=== PATIENT | female | born 1990 | race Caucasian/White ===

== ENCOUNTER → 2016-07-15 | Outpatient (REF) | payer OTHER | LOC: M LAB REF 17:08 | PROVIDERS: ATTEND Advanced Practice Midwife | DX: Z34.82 Encounter for supervision of other normal pregnancy, second trimester (principal) ==

== ENCOUNTER → 2016-08-13 | Outpatient (CLI) | payer OTHER ==
--- NOTE | 2016-08-14 02:42 | REP ---
Clinical: Anatomical evaluation. Comparison: 05/27/2016 . Findings: Examination demonstrates a single live intrauterine in breech presentation. motion is identified by technologist. Placenta is noted anteriorly and grade zero without evidence for placenta previa or abruption. Amniotic fluid volume is normal. Cervix measures 4.0 cm in length and appears closed. No evidence for nuchal cord. Gestational age by LMP 21 weeks 1 day with JN 12/23/2016 . Gestational age by current measurements 20 weeks 1 day with JN 12/30/2016 . FHR equals 147 beats per minute. BPD 4.8 cm 20 weeks 3 days HC 17.8 cm 20 weeks 2 days AC 16.0 cm 21 weeks 1 day FL 3.2 cm 20 weeks 0 days HL 3.2 cm 20 weeks 4 days HC/AC ratio 1.11 Estimated weight 360 grams ( 98th percentile). Anatomical assessment demonstrates normal structures including cranium, choroid plexus, cavum, cerebellum/posterior fossa, facial features, lungs, diaphragm, stomach, cord insertion/three-vessel cord, kidneys/bladder, spine, and extremities. Impression: Single live intrauterine in breech presentation demonstrating appropriate interval growth. Heart/ventricular outflow tracts incompletely evaluated. Remainder of the anatomical assessment is complete and normal. Signed by Bebeto Ramirez MD 08/14/2016 02:34 A
== END ==
LOC: M SMT 12:52
PROVIDERS: ATTEND Specialist
DX: Z36 Encounter for antenatal screening of mother (principal); Z3A.21 21 weeks gestation of pregnancy

== ENCOUNTER → 2016-09-03 | Outpatient (CLI) | payer OTHER ==
--- NOTE | 2016-09-03 13:54 | REP ---
Obstetric sonography: History: Supervision of , followup anatomy. Comparison sonography August 13, 2016. Findings: Scanning through the gravid uterus demonstrates a viable single intrauterine gestation in a cephalic lie. motion is observed and heart rate is recorded at 153 beats per minute. An anterior grade zero placenta is seen without evidence of previa or abruption. Amniotic fluid is subjectively normal. Closed cervical length measures 4.4 cm. No extrauterine abnormality is observed. There has been appropriate interval growth. Umbilical cord is seen draping across shoulders. No anomaly is seen. The following anatomic structures are identified today and felt to be unremarkable: cranium, choroid plexus, cavum, cerebellum and posterior fossa, face and profile, lungs, four-chamber heart with left and right ventricular outflow tract views, diaphragm, left-sided stomach, abdominal wall cord insertion, three-vessel umbilical cord, kidneys and bladder, spine, upper and lower extremities. Biometry chart: BPD 5.9 cm 24 weeks 2 days Head circumference 21.8 cm 23 week 6 days Abdominal circumference 19.7 cm 24 weeks 3 days Femur length 4.1 cm 23 weeks 1 day Humeral length 4.0 cm 24 weeks 1 day Cerebellar diameter 2.5 cm 22 weeks 6 days HC/AC ratio normal 1.11. Cephalic index normal 0.76. Estimated weight 637 grams, 1 pound 6 ounces, 38th percentile for 24 weeks 1 day. Impression: Viable single intrauterine gestation at 23 weeks 3 days by today's composite sonographic criteria. JN by today's sonography December 28, 2016. anatomic survey is felt to be complete. Signed by Marc Garcia MD 09/03/2016 03:26 P
== END ==
LOC: M SMT 12:47
PROVIDERS: ATTEND Obstetrics & Gynecology
DX: Z36 Encounter for antenatal screening of mother (principal); Z3A.23 23 weeks gestation of pregnancy

== ENCOUNTER → 2016-10-02 | Outpatient (CLI) | payer OTHER ==
[2016-10-02 13:29] LABS: BASO % 0.2 % (0.0-1.0); EOS % 0.4 % (0.0-3.0); LARGE UNSTAINED CELL # 0.1 K/mm3 (0.0-0.4); LYMPH # 1.8 K/mm3 (1.5-6.5); LYMPH % 16.3 % (24.0-44.0); MEAN CORPUSCULAR HGB CONC 33.6 g/dl (32.0-36.5); MEAN CORPUSCULAR VOLUME 89.4 fl (80.0-96.0); MONO # 0.6 K/mm3 (0.0-0.8); MONO % 5.4 % (0.0-5.0); NEUTROPHILS # 7.8 K/mm3 (1.8-7.7); NEUTROPHILS % 76.7 % (36.0-66.0); PLATELET COUNT, AUTOMATED 238 k/mm3 (150-450); RED CELL DISTRIBUTION WIDTH 12.9 % (11.5-14.5); WHITE BLOOD COUNT 10.2 K/mm3 (4.0-10.0)
== END ==
LOC: M SMT 10:11
PROVIDERS: ATTEND Specialist
DX: Z34.82 Encounter for supervision of other normal pregnancy, second trimester (principal)

== ENCOUNTER → 2016-11-05 | Outpatient (CLI) | payer OTHER ==
--- NOTE | 2016-11-06 03:17 | REP ---
Clinical: History of oligohydramnios and growth discrepancy . Comparison: 09/03/2016 . Findings: Examination demonstrates a single live intrauterine in cephalic presentation. motion is identified by technologist. Placenta is noted anteriorly and grade I without evidence for placenta previa or abruption. Amniotic fluid volume is normal. Cervix measures 4.8 cm in length and appears closed. No evidence for nuchal cord. Gestational age by LMP 33 weeks 1 day with JN 12/23/2016 . Gestational age by current measurements 32 weeks 2 days with JN 12/29/2016 . FHR equals 150 beats per minute. BPD 8.4 cm 33 weeks 5 days HC 29.5 cm 32 weeks 4 days AC 28.5 cm 32 weeks 4 days FL 6.3 cm 32 weeks 3 days HL 5.9 cm 34 weeks 1 day HC/AC ratio 1.03 Estimated weight 2011 grams ( 35th percentile). Amniotic fluid index equals 10.3 cm (8.3 - 24.5). Umbilical cord SD ratio equals 2.29 (2.00 - 3.00). Impression: Single live intrauterine in cephalic presentation demonstrating appropriate interval growth. Amniotic fluid index normal. Estimated weight normal. Signed by Bebeto Ramirez MD 11/06/2016 03:08 A
== END ==
LOC: M SMT 11:16
PROVIDERS: ATTEND Advanced Practice Midwife
DX: Z36 Encounter for antenatal screening of mother (principal); Z3A.32 32 weeks gestation of pregnancy

== ENCOUNTER → 2016-12-08 | Outpatient (REF) | payer OTHER | LOC: M LAB REF 17:09 | PROVIDERS: ATTEND Obstetrics & Gynecology | DX: Z34.83 Encounter for supervision of other normal pregnancy, third trimester (principal) ==

== ENCOUNTER 2016-12-19 19:37 | Inpatient (IN) | payer OTHER ==
[~2016-12-19] VITALS: Ht 167.6 cm; Wt 88.0 kg
[2016-12-19] MEDS ORDERED: LR 1,000 ML IV SCH (20:03)
[2016-12-19] MEDS ORDERED: LACTATED RINGER'S 1000 ML IV STA (20:03)
[2016-12-19 20:43] LABS: MEAN CORPUSCULAR HEMOGLOBIN 27.6 pg (27.0-33.0); MEAN CORPUSCULAR HGB CONC 33.7 g/dl (32.0-36.5); MEAN CORPUSCULAR VOLUME 81.9 fl (80.0-96.0); RED CELL DISTRIBUTION WIDTH 13.5 % (11.5-14.5); WHITE BLOOD COUNT 11.3 K/mm3 (4.0-10.0)
[2016-12-19] MEDS ORDERED: FENTANYL 2MCG/ML ROPIVACAINE 0.2% IN 0.9% NACL 200ML IVBAG As Ordered ONE (20:53)
[2016-12-19] MEDS ORDERED: OXYTOCIN 30 UNITS IN 0.9% NaCl 500ML IV BAG (J2590) As Ordered ONE (21:51)
[2016-12-19] MEDS ORDERED: EPIDURAL/PCA KEYS XX PRN (22:00)
[2016-12-19] MEDS ORDERED: REFRIGERATOR IV KEYS XX PRN (22:00)
[2016-12-19] MEDS ORDERED: EPIDURAL COMMENT XX SCH (22:00)
[2016-12-19] MEDS ORDERED: ePHEDrine SULFATE 25 MG/5 ML(5MG/ML) SYRINGE IV PRN (22:00)
[2016-12-19] MEDS ORDERED: NALOXONE INJ 0.4 MG/1 ML VIAL (J2310) IV PRN (22:00)
[2016-12-19] MEDS ORDERED: LACTATED RINGER'S 1000 ML IV PRN (22:00)
[2016-12-19] MEDS ORDERED: FENTANYL/ROPIVACAINE/NACL BAG 200 ML EPIDURAL SCH (22:00)
[2016-12-19] MEDS ORDERED: diphenhydrAMINE INJ 50MG/ML VIAL (J1200) IV PRN (22:00)
[2016-12-19] MEDS ORDERED: ONDANSETRON 4MG/2ML VIAL (J2405) IV PRN ×2 (22:00→22:45)
[2016-12-19] MEDS ORDERED: DIBUCAINE 1% OINTMENT 30GM TOP PRN (22:45)
[2016-12-19] MEDS ORDERED: IBUPROFEN 800 MG TAB PO PRN (22:45)
[2016-12-19] MEDS ORDERED: DOCUSATE SODIUM 100 MG CAP PO PRN (22:45)
[2016-12-19] MEDS ORDERED: MEASLES,MUMPS,RUBELLA VACCINE INJ (MMR-II) (90707) SC SCH (22:45)
[2016-12-19] MEDS ORDERED: RHOGAM 300 MCG (1500 IU) INJ (J2790) IM SCH (22:45)
[2016-12-19] MEDS ORDERED: ACETAMINOPHEN 500 MG TAB PO PRN (22:45)
[2016-12-19] MEDS ORDERED: METHYLERGONOVINE MALEATE 0.2 MG TAB PO PRN (22:45)
--- NOTE | 2016-12-19 22:49 | HPE ---
DATE OF ADMISSION: 12/19/2016 HISTORY: 26-year-old, 2, para 1 female at 38 and 1/7 weeks gestation by 8-week ultrasound and estimated date of confinement (EDC) 01/01/2017, presents with loss of fluid per vagina in the last hour. She has moderate contractions that started thereafter. She has continued to leak fluid. COURSE: She initiated care at [facility] and transferred to [facility] at 15 weeks gestation on 07/15/2016. Her blood pressure at that time was 118/82. course was unremarkable. OBSTETRICAL HISTORY: 1. In October 2014, 38 week vaginal delivery of a 7 pounds 10 ounce male that was complicated by oligohydramnios. MEDICAL HISTORY: Noncontributory. SURGICAL HISTORY: Tonsillectomy. ALLERGIES: None. SOCIAL HISTORY: The patient is . She denies cigarettes, alcohol or drug use. FAMILY HISTORY: Noncontributory. PHYSICAL EXAMINATION: Blood pressure 130/70, pulse 80. She appears uncomfortable. HEAD/NECK EXAM: Normal. LUNGS: Clear. HEART: Regular rate and rhythm. ABDOMEN: Nontender. Gravid. heart tones Category 1 with contractions every 2 to 3 minutes. Cervix 3 to 4 cm, 90% effaced, -2 station, grossly ruptured with clear fluid noted. LABORATORY DATA: Blood type A positive. Rubella immune. RPR nonreactive. Hepatitis B and C negative. HIV negative. Group B streptococcus (GBS) negative on 12/08/2016. ASSESSMENT: 26-year-old 2, para 1 female at 38 and 1/7 weeks gestation in active labor with ruptured membranes. The patient was admitted on 12/19/2016.
[2016-12-19] MEDS ORDERED: OXYTOCIN DRIP 30 UNITS in APPROPRIATE DILUENT 1 EA IV ONE (23:00)
[2016-12-20 00:15] VITALS: BP 135/83
[2016-12-20] MEDS ORDERED: PRENTAB55 PO (00:28)
[2016-12-20 00:44] VITALS: BP 135/83
[2016-12-20] MEDS: PRENATAL VITAMIN TAB PO SCH (08:28)
--- NOTE | 2016-12-20 13:01 | DN ---
DATE: 12/19/2016 PREDELIVERY DIAGNOSIS: Term , labor. POSTDELIVERY DIAGNOSIS: Delivered. PROCEDURE: Spontaneous vaginal delivery. NON LICENSED NUCLEAR PLANT OPERATOR: Dr. Ramseh Valenzuela ANESTHESIA: Epidural. ESTIMATED BLOOD LOSS: 600 mL. FINDINGS: 7 pound 2 ounce male infant. 3220 grams. scores 9 and 9. DELIVERY SUMMARY: After a short second stage, the patient had a spontaneous delivery of a 7 pound 2 ounce male with scores of 9 and 9 under epidural anesthesia. There was no nuchal cord. The shoulders delivered with ease. The cried spontaneously and was handed to the mother. The cord was doubly clamped and cut. The placenta delivered spontaneously and appeared to be intact. The patient received IV Pitocin immediately after delivery of the placenta. No vaginal lacerations were present. Sponge counts were correct.
[2016-12-20 17:44] VITALS: BP 119/76
[2016-12-21 05:52] VITALS: BP 125/65
[2016-12-21] MEDS ORDERED: TYLE325C PO (07:31)
[2016-12-21] MEDS ORDERED: MOTR200T44 PO (07:31)
[2016-12-21] MEDS: PRENATAL VITAMIN TAB PO SCH (08:31)
== END 2016-12-21 12:50 | disposition home or self-care (01) | DRG 775 ==
LOC: M LDO 19:37 → M LDI 20:01 → M OBS 12-20 00:09
PROVIDERS: ADMIT Specialist; ATTEND Specialist
PROC: 10E0XZZ Delivery of Products of Conception, External Approach (ICD-10-PCS; principal; 2016-12-19)
DX: O80 Encounter for full-term uncomplicated delivery (principal); Z37.0 Single live birth; Z3A.38 38 weeks gestation of pregnancy